=== PATIENT | male | born 1940 | race Caucasian/White ===

== ENCOUNTER 2017-06-27 09:11 | Day surgery (SDC) | payer OTHER ==
[~2017-06-27] VITALS: Ht 180.3 cm; Wt 97.0 kg
[~2017-06-27 09:11] MED LIST: ALLOPURINOL100 MG PO; ASPIRIN325 MG PO; CELEXA20 MG PO; LANTUS 3 M100 UNITS1 SC; LASIX40 MG PO; LIPITOR40 MG PO; LISINOPRIL5 MG PO; MULTIPLE VITAM1 EACH PO; PERCOCET 5/31 TABLET PO; PROCARDIA XL30 MG PO; TOPROL XL50 MG PO
[2017-06-27 09:48] VITALS: BP 132/61
[2017-06-27 12:58] VITALS: BP 109/56
[2017-06-27 13:37] VITALS: BP 118/57
== END 2017-06-27 13:39 | disposition home or self-care (01) ==
LOC: SDC 09:11
PROVIDERS: Internal Medicine
DX: H43.812 Vitreous degeneration, left eye (principal); H33.312 Horseshoe tear of retina without detachment, left eye; E11.319 Type 2 diabetes mellitus with unspecified diabetic retinopathy without macular edema; I25.10 Atherosclerotic heart disease of native coronary artery without angina pectoris; G89.29 Other chronic pain; M54.5 Low back pain; E78.5 Hyperlipidemia, unspecified; I12.9 Hypertensive chronic kidney disease with stage 1 through stage 4 chronic kidney disease, or unspecified chronic kidney disease; N18.3 Chronic kidney disease, stage 3 (moderate); E11.22 Type 2 diabetes mellitus with diabetic chronic kidney disease; I65.23 Occlusion and stenosis of bilateral carotid arteries; Z79.4 Long term (current) use of insulin; Z79.82 Long term (current) use of aspirin; Z87.891 Personal history of nicotine dependence; Z82.49 Family history of ischemic heart disease and other diseases of the circulatory system; Z83.3 Family history of diabetes mellitus
CPT/HCPCS: 82948; J0690; J2250; J2405; J3300

== ENCOUNTER 2017-09-12 05:41 | Day surgery (SDC) | payer OTHER ==
[~2017-09-12] VITALS: Ht 180.3 cm; Wt 97.1 kg
[~2017-09-12 05:41] MED LIST changes: +BASAGLAR K100 UNIT/1 SC; +ONGLYZA2.5 MG PO
[2017-09-12 06:48] VITALS: BP 128/60
[2017-09-12 08:44] VITALS: BP 150/80
[2017-09-12 09:11] VITALS: BP 141/67
== END 2017-09-12 09:20 | disposition home or self-care (01) ==
LOC: SDC 05:41
PROVIDERS: Internal Medicine
DX: H43.811 Vitreous degeneration, right eye (principal); H43.391 Other vitreous opacities, right eye; H33.311 Horseshoe tear of retina without detachment, right eye; I25.10 Atherosclerotic heart disease of native coronary artery without angina pectoris; E11.319 Type 2 diabetes mellitus with unspecified diabetic retinopathy without macular edema; E78.5 Hyperlipidemia, unspecified; I12.9 Hypertensive chronic kidney disease with stage 1 through stage 4 chronic kidney disease, or unspecified chronic kidney disease; E11.22 Type 2 diabetes mellitus with diabetic chronic kidney disease; N18.3 Chronic kidney disease, stage 3 (moderate); G47.33 Obstructive sleep apnea (adult) (pediatric)
CPT/HCPCS: 82948; J0690; J3300